=== PATIENT | male | born 1955 | race Caucasian/White ===

== ENCOUNTER 2018-08-25 17:41 | Emergency (ER) | payer OTHER ==
[~2018-08-25] VITALS: Ht 180.3 cm; Wt 68.0 kg
[~2018-08-25 17:41] MED LIST: HYDACE5 PO
[2018-08-25] MEDS ORDERED: Roxicodone5 MG PO (20:01)
[2018-08-25] MEDS ORDERED: Robaxin500 MG PO (20:01)
== END 2018-08-25 20:11 | disposition home or self-care (01) ==
LOC: ER 17:41
DX: S09.90XA Unspecified injury of head, initial encounter (principal); V89.2XXA Person injured in unspecified motor-vehicle accident, traffic, initial encounter
CPT/HCPCS: 70450; 72125; 99284-25; A9270-GY; L0160